=== PATIENT | male | born 1965 | race Caucasian/White ===

== ENCOUNTER 2018-04-23 14:58 | Emergency (ER) | payer OTHER ==
[2018-04-23] MEDS ORDERED: SODIUM CHLORIDE 0.9% 1,000 ML IV STA (15:27)
[2018-04-23 15:28] VITALS: RESP 18
--- NOTE | 2018-04-23 15:42 | ED ---
General Adult HPI - General Source: patient, RN notes reviewed, old records reviewed Mode of arrival: ambulatory Limitations: no limitations - History of Present Illness Severity scale (1-10): 5 <Varun Bradford - Last Filed: 04/23/18 16:13> <Cesar Yeung - Last Filed: 04/23/18 18:27> - General Chief complaint: Headache Stated complaint: Dizzy/Lightheaded Time Seen by Provider: 04/23/18 15:14 - History of Present Illness Initial comments: This is a 52-year-old male the ER for evaluation patient does say for evaluation regarding multiple nonspecific symptoms. Patient has recent diagnosis of elevated blood pressure. Patient has been suffering for one month of dizziness occasional headaches and symptoms of feeling like he struck especially with movement mainly when he started on his car, he denies arm spinning. He is complaining of also sinus pressure-type headaches anterior bilateral eyes, as well as his posterior neck. Denies chest pain denies shortness of breath. Patient states he's had outpatient studies have included a stress test echocardiogram and he has follow-up with ENT this week. Patient denies any other fevers no trauma no other recent change in medications aside from the new blood pressure medication that he is currently taking. Patient states earlier today he is had some pressure in his head as well as some symptoms of dizziness and came to the ER to figure out what is wrong, patient states multiple people told that maybe she has imaging of his brain although his doctors that he seen an outpatient basis and I think that was necessary. Patient currently is asymptomatic (Varun Bradford) - Related Data Home Medications Medication Instructions Recorded Confirmed Atorvastatin [Lipitor] 20 mg PO HS 04/23/18 04/23/18 Ibuprofen [Motrin Ib] 400 mg PO Q6H PRN 04/23/18 04/23/18 Lisinopril [Zestril] 10 mg PO HS 04/23/18 04/23/18 Allergies Allergy/AdvReac Type Severity Reaction Status Date / Time No Known Allergies Allergy Verified 04/23/18 15:28 Review of Systems ROS Other: All systems not noted in ROS Statement are negative. <Varun Bradford - Last Filed: 04/23/18 16:13> ROS Other: All systems not noted in ROS Statement are negative. <Cesar Yeung - Last Filed: 04/23/18 18:27> ROS Statement: Those systems with pertinent positive or pertinent negative responses have been documented in the HPI. Past Medical History Past Medical History: Asthma, Cancer, GI Bleed, Hyperlipidemia, Hypertension Additional Past Medical History / Comment(s): SEASONAL ALLERGIES, SINUS PROBLEMS , DIVERTICULOSIS, HEMORRHOIDS, FX RT ANKLE, NUMBNESS/TINGLING IN BILAT UPPER EXTREMITIES, TESTICULAR CA. History of Any Multi-Drug Resistant Organisms: None Reported Past Surgical History: Tonsillectomy Additional Past Surgical History / Comment(s): COLONOSCOPY, ORCHIECTOMY. Past Anesthesia/Blood Transfusion Reactions: No Reported Reaction Past Psychological History: No Psychological Hx Reported Smoking Status: Current every day smoker Past Alcohol Use History: Occasional Past Drug Use History: None Reported <Varun Bradford - Last Filed: 04/23/18 16:13> General Exam Limitations: no limitations General appearance: alert, in no apparent distress Head exam: Present: atraumatic, normocephalic, normal inspection Eye exam: Present: normal appearance, PERRL, EOMI. Absent: scleral icterus, conjunctival injection, periorbital swelling ENT exam: Present: normal exam, mucous membranes moist Neck exam: Present: normal inspection. Absent: tenderness, meningismus, lymphadenopathy Respiratory exam: Present: normal lung sounds bilaterally. Absent: respiratory distress, wheezes, rales, rhonchi, stridor Cardiovascular Exam: Present: regular rate, normal rhythm, normal heart sounds. Absent: systolic murmur, diastolic murmur, rubs, gallop, clicks GI/Abdominal exam: Present: soft, normal bowel sounds. Absent: distended, tenderness, guarding, rebound, rigid Extremities exam: Present: normal inspection, full ROM, normal capillary refill. Absent: tenderness, pedal edema, joint swelling, calf tenderness Back exam: Present: normal inspection Neurological exam: Present: alert, oriented X3, CN II-XII intact Psychiatric exam: Present: normal affect, normal mood Skin exam: Present: warm, dry, intact, normal color. Absent: rash <Varun Bradford - Last Filed: 04/23/18 16:13> Course <Varun Bradford - Last Filed: 04/23/18 16:13> <Cesar Yeung - Last Filed: 04/23/18 18:27> Vital Signs 04/23/18 04/23/18 04/23/18 15:22 15:25 17:05 Temperature 98.5 F 98 F Pulse Rate 83 62 Pulse Rate [ 82 Sitting] Pulse Rate [ 91 Standing] Respiratory 20 18 18 Rate Blood Pressure 171/82 150/90 Blood Pressure 172/91 [Sitting] Blood Pressure 165/95 [Standing] O2 Sat by Pulse 95 98 Oximetry - Reevaluation(s) Reevaluation #1: 04/23/18 16:13 Patient's medical record is thoroughly reviewed (Varun Bradford) Reevaluation #2: 04/23/18 16:13 Patient concern that from underlying brain disease, requesting CT brain (Varun Bradford) EKG Findings - EKG Comments: EKG Findings:: EKG shows normal sinus rhythm rate of 79, OR 198, QRS 12, QTc 440 <Varun Bradford - Last Filed: 04/23/18 16:13> Medical Decision Making <Varun Bradford - Last Filed: 04/23/18 16:13> - Lab Data Result diagrams: 04/23/18 16:00 04/23/18 16:00 <Cesar Yeung - Last Filed: 04/23/18 18:27> - Medical Decision Making Patient was sent out to me by previous shift physician. Briefly, patient is a 52-year-old male with past medical history of dizziness versus vertigo. He has an worked up extensively by ENT and other specialist. Plan at sign out was to follow-up with CT imaging. CT imaging is negative patient is clear for discharge. Computed tomography scan was read by radiology and reviewed by myself showing no acute processes. Patient reevaluated with stable medical condition. He will be discharge with instructions to follow-up with ENT physician. (Cesar Yeung) - Lab Data Lab Results 04/23/18 04/23/18 04/23/18 Range/Units 16:00 16:00 16:00 WBC 9.2 (3.8-10.6) k/uL RBC 5.06 (4.30-5.90) m/uL Hgb 15.9 (13.0-17.5) gm/dL Hct 46.7 (39.0-53.0) % MCV 92.4 (80.0-100.0) fL MCH 31.5 (25.0-35.0) pg MCHC 34.1 (31.0-37.0) g/dL RDW 13.4 (11.5-15.5) % Plt Count 180 (150-450) k/uL Neutrophils % 66 % Lymphocytes % 23 % Monocytes % 7 % Eosinophils % 2 % Basophils % 1 % Neutrophils # 6.0 (1.3-7.7) k/uL Lymphocytes # 2.1 (1.0-4.8) k/uL Monocytes # 0.7 (0-1.0) k/uL Eosinophils # 0.2 (0-0.7) k/uL Basophils # 0.1 (0-0.2) k/uL PT (9.0-12.0) sec INR (<1.2) APTT (22.0-30.0) sec Sodium 138 (137-145) mmol/L Potassium 4.4 (3.5-5.1) mmol/L Chloride 106 (98-107) mmol/L Carbon Dioxide 25 (22-30) mmol/L Anion Gap 7 mmol/L BUN 13 (9-20) mg/dL Creatinine 0.90 (0.66-1.25) mg/dL Est GFR (CKD-EPI)AfAm >90 (>60 ml/min/1.73 sqM) Est GFR (CKD-EPI)NonAf >90 (>60 ml/min/1.73 sqM) Glucose 92 (74-99) mg/dL Calcium 9.4 (8.4-10.2) mg/dL Phosphorus 3.4 (2.5-4.5) mg/dL Magnesium 1.9 (1.6-2.3) mg/dL Total Bilirubin 0.4 (0.2-1.3) mg/dL AST 34 (17-59) U/L ALT 43 (21-72) U/L Alkaline Phosphatase 71 (38-126) U/L Total Creatine Kinase 286 H (55-170) U/L CK-MB (CK-2) 3.0 H* (0.0-2.4) ng/mL CK-MB (CK-2) Rel Index 1.0 Troponin I <0.012 (0.000-0.034) ng/mL Total Protein 6.7 (6.3-8.2) g/dL Albumin 4.2 (3.5-5.0) g/dL Urine Color Urine Appearance (Clear) Urine pH (5.0-8.0) Ur Specific [place] (1.001-1.035) Urine Protein (Negative) Urine Glucose (UA) (Negative) Urine Ketones (Negative) Urine Blood (Negative) Urine Nitrite (Negative) Urine Bilirubin (Negative) Urine Urobilinogen (<2.0) mg/dL Ur Leukocyte Esterase (Negative) 04/23/18 04/23/18 Range/Units 16:00 16:00 WBC (3.8-10.6) k/uL RBC (4.30-5.90) m/uL Hgb (13.0-17.5) gm/dL Hct (39.0-53.0) % MCV (80.0-100.0) fL MCH (25.0-35.0) pg MCHC (31.0-37.0) g/dL RDW (11.5-15.5) % Plt Count (150-450) k/uL Neutrophils % % Lymphocytes % % Monocytes % % Eosinophils % % Basophils % % Neutrophils # (1.3-7.7) k/uL Lymphocytes # (1.0-4.8) k/uL Monocytes # (0-1.0) k/uL Eosinophils # (0-0.7) k/uL Basophils # (0-0.2) k/uL PT 10.1 (9.0-12.0) sec INR 1.0 (<1.2) APTT 26.1 (22.0-30.0) sec Sodium (137-145) mmol/L Potassium (3.5-5.1) mmol/L Chloride (98-107) mmol/L Carbon Dioxide (22-30) mmol/L Anion Gap mmol/L BUN (9-20) mg/dL Creatinine (0.66-1.25) mg/dL Est GFR (CKD-EPI)AfAm (>60 ml/min/1.73 sqM) Est GFR (CKD-EPI)NonAf (>60 ml/min/1.73 sqM) Glucose (74-99) mg/dL Calcium (8.4-10.2) mg/dL Phosphorus (2.5-4.5) mg/dL Magnesium (1.6-2.3) mg/dL Total Bilirubin (0.2-1.3) mg/dL AST (17-59) U/L ALT (21-72) U/L Alkaline Phosphatase (38-126) U/L Total Creatine Kinase (55-170) U/L CK-MB (CK-2) (0.0-2.4) ng/mL CK-MB (CK-2) Rel Index Troponin I (0.000-0.034) ng/mL Total Protein (6.3-8.2) g/dL Albumin (3.5-5.0) g/dL Urine Color Light Yellow Urine Appearance Clear (Clear) Urine pH 7.0 (5.0-8.0) Ur Specific [place] 1.006 (1.001-1.035) Urine Protein Negative (Negative) Urine Glucose (UA) Negative (Negative) Urine Ketones Negative (Negative) Urine Blood Negative (Negative) Urine Nitrite Negative (Negative) Urine Bilirubin Negative (Negative) Urine Urobilinogen <2.0 (<2.0) mg/dL Ur Leukocyte Esterase Negative (Negative) Disposition <Varun Bradford B - Last Filed: 04/23/18 16:13> Is patient prescribed a controlled substance at d/c from ED?: No Time of Disposition: 18:27 <Cesar Yeung - Last Filed: 04/23/18 18:27> Clinical Impression: Dizziness Disposition: HOME SELF-CARE Condition: Good Instructions: Acute Headache (ED) Referrals: Ti Funes MD [Primary Care Provider] - 1-2 days
[2018-04-23 16:24] LABS: Appearance,Urine Clear (Clear); Bilirubin,Urine Negative (Negative); Blood,Urine Negative (Negative); Color,Urine Light Yellow; Glucose,Urine (UA) Negative (Negative); Ketones,Urine Negative (Negative); Leukocyte Esterase,Urine Negative (Negative); Nitrite,Urine Negative (Negative); Protein,Urine Negative (Negative); Specific Gravity,Urine 1.006 (1.001-1.035); Urobilinogen,Urine <2.0 mg/dL (<2.0)
[2018-04-23 16:26] LABS: Basophils # (A) 0.1 k/uL (0-0.2); Basophils % (A) 1 %; Eosinophils # (A) 0.2 k/uL (0-0.7); Eosinophils % (A) 2 %; HCT 46.7 % (39.0-53.0); HGB 15.9 gm/dL (13.0-17.5); Lymphocytes # (A) 2.1 k/uL (1.0-4.8); Lymphocytes % (A) 23 %; MCH 31.5 pg (25.0-35.0); MCHC 34.1 g/dL (31.0-37.0); MCV 92.4 fL (80.0-100.0); Mean Platelet Volume 7.9; Monocytes # (A) 0.7 k/uL (0-1.0); Monocytes % (A) 7 %; Neutrophils % (A) 66 %; Platelet Count 180 k/uL (150-450); RBC 5.06 m/uL (4.30-5.90); RDW 13.4 % (11.5-15.5); WBC 9.2 k/uL (3.8-10.6)
[2018-04-23 16:35] LABS: Partial Thromboplastin Time 26.1 sec (22.0-30.0); Prothrombin Time 10.1 sec (9.0-12.0)
[2018-04-23 16:43] LABS: ALT 43 U/L (21-72); AST 34 U/L (17-59); Albumin 4.2 g/dL (3.5-5.0); Alkaline Phosphatase 71 U/L (38-126); Anion Gap 7 mmol/L; Blood Urea Nitrogen 13 mg/dL (9-20); Calcium 9.4 mg/dL (8.4-10.2); Carbon Dioxide 25 mmol/L (22-30); Chloride 106 mmol/L (98-107); Glucose 92 mg/dL (74-99); Magnesium 1.9 mg/dL (1.6-2.3); Phosphorus 3.4 mg/dL (2.5-4.5); Potassium 4.4 mmol/L (3.5-5.1); Sodium 138 mmol/L (137-145); Total Bilirubin 0.4 mg/dL (0.2-1.3); Total Protein 6.7 g/dL (6.3-8.2)
[2018-04-23 16:51] LABS: Creatine Kinase 286 U/L (55-170)
--- NOTE | 2018-04-23 17:00 | CT ---
EXAMINATION TYPE: CT brain wo con DATE OF EXAM: 04/23/2018 COMPARISON: None HISTORY: Dizziness and left ear pain. CT DLP: 1035.4 mGycm Automated exposure control for dose reduction was used. FINDINGS: Ventricles and sulci appear normal. There is no mass effect nor midline shift. There is no sign of in tracranial hemorrhage. The calvarium is intact. IMPRESSION: NEGATIVE CT SCAN OF THE BRAIN. NO CHANGE.
--- NOTE | 2018-04-23 17:02 | CT ---
EXAMINATION TYPE: CT sinus wo con DATE OF EXAM: 04/23/2018 COMPARISON: None HISTORY: Dizziness and left ear pain. CT DLP: 581.4 mGycm. Automated Exposure Control for Dose Reduction was Utilized. TECHNIQUE: CT scan of the sinuses is performed without contrast, axial images are obtained, coronal r eformatted images are also reviewed. FINDINGS: There is bilateral patency of the ostiomeatal complex. There are small mucous retention cys ts at the floor of the left maxillary sinus. The other paranasal sinuses appear normally aerated. Orb ital margins are intact. Maxilla is intact and zygomatic arches appear normal. Nasal bone appears int act. Mastoid sinuses appear normal. IMPRESSION: Small mucous retention cysts in the left maxillary sinus. Otherwise negative exam.
[2018-04-23 17:03] LABS: Troponin I <0.012 ng/mL (0.000-0.034)
--- NOTE | 2018-04-23 17:43 | CT ---
EXAMINATION TYPE: CT angio head neck DATE OF EXAM: 04/23/2018 HISTORY: Dizziness and left ear pain. COMPARISON: CT DLP: 410.3 mGycm. Automated Exposure Control for Dose Reduction was Utilized. TECHNIQUE: CTA scan of the neck is performed with IV Contrast, patient injected with 65ml mL of Isov ue 370, axial images are obtained, coronal and sagittal reformatted images are reviewed. Three-D jhonatan nstructed images are created on an independent workstation and reviewed. FINDINGS: There is arterial flow in the vertebral arteries. There is arterial flow in the common internal and e xternal carotid arteries bilaterally. There is normal branching pattern of the great vessels on the a ortic arch. Vertebral arteries are relatively small. There is mild atherosclerotic calcification at t he carotid artery bifurcations without luminal narrowing. There is arterial flow in the anterior middle and posterior cerebral arteries. The anterior cerebral arteries appear to fill mostly from the left side through the anterior communicating artery. There is a diminutive basilar artery. The posterior cerebral arteries are patent. The posterior cerebral robyn crystal appear to fill mostly through the posterior communicating arteries. There is normal contrast opa cification of the venous sinuses. There is no mass effect. There is no evidence of aneurysm or neovas cularity. I see no significant stenosis. IMPRESSION: Diminutive vertebral arteries. Posterior cerebral arteries filled mostly through the post erior communicating arteries. Anterior cerebral arteries fill mostly from the left internal carotid a rtery.
--- NOTE | 2018-04-23 18:00 | XR ---
EXAMINATION TYPE: XR chest 2V DATE OF EXAM: 04/23/2018 COMPARISON: NONE HISTORY: Fatigue TECHNIQUE: Frontal and lateral views of the chest are obtained. FINDINGS: Heart and mediastinum are normal. Lungs are clear. Diaphragm is normal. Bony thorax is int act. Pulmonary vascularity is normal. IMPRESSION: Normal chest.
[2018-04-23 19:16] VITALS: BP 157/97; PULSE 65; TEMP 98.3
== END 2018-04-23 19:05 | disposition home or self-care (01) ==
LOC: EC 14:58
DX: R42 Dizziness and giddiness (principal); R51 Headache; H57.13 Ocular pain, bilateral; M54.2 Cervicalgia; E78.5 Hyperlipidemia, unspecified; I10 Essential (primary) hypertension; F17.200 Nicotine dependence, unspecified, uncomplicated; Z79.899 Other long term (current) drug therapy; Z85.47 Personal history of malignant neoplasm of testis; Z90.79 Acquired absence of other genital organ(s)
CPT/HCPCS: 36415; 93005; 80053; 82550; 82553; 83735; 84100; 84484; 85025; 85610; 85730; 81003; 87086; 71046; 70496; 70450; 70498; 70486; 99285; 96360; Q9967

== ENCOUNTER → 2018-05-22 | Outpatient (CLI) | payer OTHER ==
--- NOTE | 2018-05-22 08:18 | MR ---
EXAMINATION TYPE: MR iac wo/w con DATE OF EXAM: 05/22/2018 COMPARISON: None. HISTORY: Headache, Vertigo TECHNIQUE: Multiplanar, multisequence images of the brain and brainstem is performed without and with IV contras t, utilizing 12.5 mL intravenous Gadavist . FINDINGS: There is a partially empty sella. Midline structures are otherwise unremarkable. There is a normal craniocervical junction. There is a tiny, 3.6 mm area of restricted diffusion in the left cer ebellar hemisphere. This correlates with a tiny cystic lesion. There is no other restricted diffusion . There are normal vascular flow voids. The orbits are normal. High-resolution imaging through the posterior fossa fails to demonstrate a CP angle mass lesion. No i ntracanalicular lesion is seen. There are scattered subcentimeter FLAIR lesions on the FLAIR dataset. These are nonspecific. A differ ential diagnosis would include demyelination, small vessel disease, hypertension, migraine headaches and Lyme's disease. There is no mass effect, midline shift or intracranial blood identified. Following intravenous administration of contrast. I do not see evidence of abnormal enhancement. Spec ifically, there is no evidence of intracanalicular enhancement. IMPRESSION: 1. TINY AREA OF RESTRICTED DIFFUSION IN THE LEFT CEREBELLAR HEMISPHERE MAY RELATE TO A SUBACUTE INFAR CT. 2. PARTIALLY EMPTY SELLA. 3. SCATTERED FLAIR LESIONS IN THE FLAIR DATASET. THESE ARE NONSPECIFIC. 4. NO EVIDENCE OF A CP ANGLE MASS LESION OR INTRACANALICULAR ACOUSTIC SCHW[place].
== END | disposition home or self-care (01) ==
LOC: RADMRIMAIN 07:06
PROVIDERS: ATTEND Otolaryngology
DX: G93.89 Other specified disorders of brain (principal); E23.6 Other disorders of pituitary gland; R93.0 Abnormal findings on diagnostic imaging of skull and head, not elsewhere classified; R51 Headache
CPT/HCPCS: 70553; A9581

== ENCOUNTER → 2018-05-27 | Outpatient (CLI) | payer OTHER ==
--- NOTE | 2018-05-27 08:45 | MR ---
EXAMINATION TYPE: MR brain wo/w con DATE OF EXAM: 05/27/2018 COMPARISON: CT brain from April 23, 2018. MRI IAC May 22, 2018 HISTORY: Transient cerebral ischemic attack per order. Recent abnormal MRI. TECHNIQUE: Multiplanar, multisequence images of the brain and brainstem is performed without and with IV contras t, utilizing 12.5 mL intravenous Gadavist . FINDINGS: Diffusion weighted images demonstrate no evidence of a new infarct or other diffusion abnor mality. Stable 3 mm focus posterior inferior left cerebellar hemisphere image 48 series 305 is felt to correspond to area of volume averaging at surface of the brain correlating with axial image 7 on T 2 and FLAIR weighted images. There is no extra-axial fluid collection or significant white matter sig nal abnormality. The ventricular system and cisternal spaces are normal in size and appearance. The brain volume is age appropriate. Midline structures demonstrate normal morphology. Empty sella appearance is redemonstrated. The crani ocervical junction appears within normal limits. Post contrast images demonstrate no abnormal enhanc ement. The dural venous sinuses appear patent. The visualized sinuses are clear and the globes are in tact. No suspicious fluid signal seen in mastoid air cells bilaterally. IMPRESSION: No convincing evidence of a recent infarct.
== END ==
LOC: RADMRIMAIN 07:35
PROVIDERS: ATTEND Psychiatry & Neurology Neurology
DX: G45.9 Transient cerebral ischemic attack, unspecified (principal)
CPT/HCPCS: 70553; A9581

== ENCOUNTER → 2020-03-19 | Outpatient (CLI) | payer OTHER ==
--- NOTE | 2020-03-19 11:20 | US ---
EXAMINATION TYPE: US venous doppler duplex LE RT DATE OF EXAM: 03/19/2020 11:10 AM COMPARISON: NONE CLINICAL HISTORY: M25.561 Pain in Rt knee. SIDE PERFORMED: Right TECHNIQUE: The lower extremity deep venous system is examined utilizing real time linear array sonog dima with graded compression, doppler sonography and color-flow sonography. VESSELS IMAGED: External Iliac Vein (EIV) Common Femoral Vein Deep Femoral Vein Greater Saphenous Vein * Femoral Vein Popliteal Vein Small Saphenous Vein * Proximal Calf Veins (* superficial vessels) Right Leg: Negative for DVT IMPRESSION: No evidence for DVT.
== END | disposition home or self-care (01) ==
LOC: RADUSWWP 10:51
PROVIDERS: ATTEND Orthopaedic Surgery
DX: M17.11 Unilateral primary osteoarthritis, right knee (principal)

== ENCOUNTER → 2020-05-25 | Outpatient (CLI) | payer OTHER ==
--- NOTE | 2020-05-25 14:01 | US ---
EXAMINATION TYPE: US abdomen limited DATE OF EXAM: 05/25/2020 COMPARISON: NONE CLINICAL HISTORY: K76.89 DISEASE OF LIVER. soreness RUQ EXAM MEASUREMENTS: Liver Length: 19.1 cm Gallbladder Wall: 0.3 cm CBD: 0.4 cm Right Kidney: 11.1 x 6.4 x 5.4 cm Pancreas: wnl Liver: Multiple subcentimeter cysts throughout liver. Largest cyst = 2.5 x 1.9 x 1.3 cm Gallbladder: wnl Evidence for sonographic Mckenzie's sign: No CBD: wnl Right Kidney: No hydronephrosis or masses seen IMPRESSION: 1. Multiple hepatic cysts
== END | disposition home or self-care (01) ==
LOC: RADUSWWP 07:04
PROVIDERS: ATTEND Internal Medicine Gastroenterology
DX: K76.89 Other specified diseases of liver (principal)
CPT/HCPCS: 76705

== ENCOUNTER 2020-06-19 08:56 | Day surgery (SDC) | payer OTHER ==
[2020-06-15 17:35] VITALS: BMI 36.2
[~2020-06-19 08:56] MED LIST: LACTATED RINGERS 1,000 ML IV SCH; LIDOCAINE 1% (10MG/ML) FOR IV START INTRADERMA PRN; MIDAZOLAM 2 MG/2 ML VIAL IV PRN
[2020-06-19 09:26] VITALS: TEMP 97.3
[2020-06-19] MEDS ORDERED: PROPOFOL 10 MG/ML 20 ML VIAL IV ONE (10:15)
[2020-06-19 10:35] LABS: Bilirubin, Delta 0.2 mg/dL (0.0-0.2); Bilirubin,Unconjugated 0.7 mg/dL (0.0-1.1); Total Bilirubin 0.9 mg/dL (0.2-1.3); Total Protein 6.5 g/dL (6.3-8.2)
[2020-06-19] MEDS ORDERED: IV FLUID CONTINUATION 1,000 ML IV ONE (10:57)
[2020-06-19 10:59] VITALS: RESP 16
--- NOTE | 2020-06-19 11:00 | P.PCN ---
Date of Procedure: 06/19/20 Description of Procedure: BRIEF HISTORY: Patient is a 54-year-old male presenting for colonoscopy for evaluation of adenomatous polyp of the colon. Prior colonoscopy in 2013 with polypectomy. Does report some loose stool and abdominal bloating. PROCEDURE PERFORMED: Colonoscopy with polypectomy and biopsy. PREOPERATIVE DIAGNOSIS: adenomatous polyp of the colon, last colonoscopy 2013, altered bowel function. ESTIMATED BLOOD LOSS: Minimal. IV sedation per Anesthesia. PROCEDURE: After informed consent was obtained, the patient, was brought into the endoscopy unit. IV sedation was administered by Anesthesia under continuous monitoring. Digital rectal examination was normal. Initially the Olympus CF-190 flexible video colonoscope was then inserted in the rectum, gradually advanced into the cecum without any difficulty. Careful examination was performed as the scope was gradually being withdrawn. Ileocecal valve and the appendiceal orifice were visualized and appeared normal. Prep was excellent. Mucosa of the cecum, ascending colon, transverse colon, descending colon, sigmoid colon, and rectum appeared normal. a flat 12 mm transverse colon polyp was removed with hot snare polypectomy. A diminutive 2 mm sigmoid colon polyp was removed with cold forcep polypectomy. Random biopsies were taken of a normal-appearing right and left colon as well as some erythematous mucosa in the sigmoid colon 40 cm from theanal verge which was likely prep related. A few scattered sigmoid diverticula noted. Retroflexion was performed in the rectum and no lesions were seen. The patient tolerated the procedure well. IMPRESSION: Flat transverse colon polyp removed with hot snare polypectomy. Diminutive sigmoid colon polyp removed with cold forceps polypectomy. Random biopsies taken of the right and left colon the setting of altered bowel function to rule out microscopic colitis. Mild sigmoid diverticulosis. RECOMMENDATIONS: Findings of this examination were discussed with the patient. Okay to resume diet. Okay to resume medications. Follow-up in GI clinic on June 26 for results of biopsies and polypectomy as scheduled. Anticipate repeat colonoscopy in 3 years for high-risk colon polyp.
[2020-06-19 11:16] VITALS: BP 125/69; PULSE 60
== END 2020-06-19 11:32 | disposition home or self-care (01) ==
LOC: ORWHC2ENDO 08:56
PROVIDERS: ATTEND Internal Medicine
DX: D12.3 Benign neoplasm of transverse colon (principal); D12.5 Benign neoplasm of sigmoid colon; K63.5 Polyp of colon; Z87.19 Personal history of other diseases of the digestive system; K57.30 Diverticulosis of large intestine without perforation or abscess without bleeding; Z86.010 Personal history of colon polyps; Z98.890 Other specified postprocedural states; E78.5 Hyperlipidemia, unspecified; F17.200 Nicotine dependence, unspecified, uncomplicated; Z79.899 Other long term (current) drug therapy
CPT/HCPCS: 88305; 80076; 82105; 45380; 45385; J2704

== ENCOUNTER 2025-03-02 13:38 | Emergency (ER) | payer OTHER ==
--- NOTE | 2025-03-02 15:36 | ED ---
General Adult HPI - General Source: patient, RN notes reviewed Mode of arrival: ambulatory Limitations: no limitations <Everton Gaytan - Last Filed: 03/02/25 15:35> <Marjorie Dale - Last Filed: 03/02/25 23:16> - General Chief complaint: Chest Pain Stated complaint: elevated BP Time Seen by Provider: 03/02/25 15:35 - History of Present Illness Initial comments: Quick note 59-year-old male presents emergency department from PCP EP's office for cardiac evaluation. Patient states he is just not felt well he states he is very fatigued, nauseated complaining of chest tightness worse with exertion complains of abdominal discomfort right leg pain. Patient states his blood pressure has been out of control he is on current medication. Denies any current or recent cardiac workup. Denies any syncopal episodes. (Everton Gaytan) 59-year-old male sent in by his PCP. Patient reports that he had a routine doctor's visit earlier today. During the visit he was hypertensive. He also reports that for the last week to 2 weeks he has been increasingly fatigued, nauseated, bloated and having abdominal pain. He is a pack per day smoker. He states that his chest does get heavier as his blood pressure goes up. States that he is on antihypertensives and takes them as prescribed. He also states that he has been getting some prickling discomfort in his right foot when he walks or bears weight. States that he does have shortness of breath throughout the day which he states has been ongoing for "a while". No fever. He admits to loose stool. (Marjorie Dale) - Related Data Home Medications Medication Instructions Recorded Confirmed Atorvastatin [Lipitor] 20 mg PO HS 04/23/18 03/02/25 lisinopriL [Zestril] 20 mg PO HS 03/02/25 03/02/25 Allergies Allergy/AdvReac Type Severity Reaction Status Date / Time No Known Allergies Allergy Verified 03/02/25 20:28 Review of Systems ROS Other: All systems not noted in ROS Statement are negative. <Everton Gaytan - Last Filed: 03/02/25 15:35> ROS Other: All systems not noted in ROS Statement are negative. <Marjorie Dale - Last Filed: 03/02/25 23:16> ROS Statement: Those systems with pertinent positive or pertinent negative responses have been documented in the HPI. Past Medical History Past Medical History: Asthma, Cancer, GERD/Reflux, Hyperlipidemia, Hypertension Additional Past Medical History / Comment(s): SEASONAL ALLERGIES, SINUS PROBLEMS, DIVERTICULOSIS, HEMORRHOIDS, FX RT ANKLE, NUMBNESS/TINGLING IN BILATERAL UPPER EXTREMITIES, HX TESTICULAR CA. History of Any Multi-Drug Resistant Organisms: None Reported Past Surgical History: Tonsillectomy Additional Past Surgical History / Comment(s): COLONOSCOPY, LEFT Testicle removed). Past Anesthesia/Blood Transfusion Reactions: No Reported Reaction Past Psychological History: No Psychological Hx Reported Smoking Status: Current every day smoker - Past Family History Father Family Medical History: No Reported History <Everton Gaytan - Last Filed: 03/02/25 15:35> General Exam Limitations: no limitations <Everton Gaytan - Last Filed: 03/02/25 15:35> Limitations: no limitations General appearance: alert, in no apparent distress Head exam: Present: atraumatic, normocephalic, normal inspection Eye exam: Present: normal appearance, EOMI Neck exam: Present: normal inspection. Absent: meningismus Respiratory exam: Present: normal lung sounds bilaterally. Absent: respiratory distress, wheezes, rales, rhonchi, stridor Cardiovascular Exam: Present: regular rate, normal rhythm, normal heart sounds. Absent: systolic murmur, diastolic murmur, rubs, gallop, clicks GI/Abdominal exam: Present: soft, distended, tenderness. Absent: guarding, rebound, rigid Neurological exam: Present: alert, oriented X3 Psychiatric exam: Present: normal affect, normal mood Skin exam: Present: warm, dry, normal color <Marjorie Dale - Last Filed: 03/02/25 23:16> - General Exam Comments Initial Comments: Visual Physical Exam Vital signs reviewed General: Well-appearing, nontoxic, no acute distress. Head: Normocephalic, atraumatic Eyes: PERRLA, EOMI ENT: Airway patent Chest: Nonlabored breathing Skin: No visual rash, normal skin tone Neuro: Alert and oriented 3 Musculoskeletal: No gross abnormalities (Everton Gaytan) Course Vital Signs 03/02/25 03/02/25 03/02/25 13:52 21:27 22:59 Temperature 98.3 F 98.5 F Pulse Rate 71 61 57 L Respiratory 16 18 18 Rate Blood Pressure 178/109 153/74 167/94 O2 Sat by Pulse 98 94 L 98 Oximetry Medical Decision Making <Everton Gaytan - Last Filed: 03/02/25 15:35> - Lab Data Result diagrams: 03/02/25 14:13 03/02/25 14:13 <Marjorie Dale - Last Filed: 03/02/25 23:16> - Medical Decision Making I completed the quick note portion of this chart signed Everton Gaytan PA-C (Everton Gaytan) - Lab Data Lab Results 03/02/25 03/02/25 03/02/25 Range/Units 14:13 14:13 14:13 WBC 7.03 (4.50-10.00) 10*3/uL RBC 4.62 (4.40-5.60) 10*6/uL Hgb 15.7 (13.0-17.0) g/dL Hct 43.4 (39.6-50.0) % MCV 93.9 (80.0-97.0) fL MCH 34.0 H (27.0-32.0) pg MCHC 36.2 (32.0-37.0) g/dL Plt Count 186 (140-440) 10*3/uL MPV 11.3 (9.5-12.2) fL Immature Gran % (Auto) 0.3 % Neutrophils % 60.8 % Lymphocytes % 25.0 % Monocytes % 11.2 % Eosinophils % 2.0 % Basophils % 0.7 % Immature Gran # 0.02 (0.00-0.04) 10*3/uL Neutrophils # 4.27 (1.80-7.70) 10*3/uL Lymphocytes # 1.76 (0.90-5.00) 10*3/uL Monocytes # 0.79 (0.20-1.00) 10*3/uL Eosinophils # 0.14 (0.04-0.35) 10*3/uL Basophils # 0.05 (0.00-0.10) 10*3/uL PT 10.6 (10.0-12.5) sec INR 0.9 (<1.2) APTT 26.9 (22.0-30.0) sec D-Dimer 0.23 (<0.60) mg/L FEU Sodium 136 L (137-145) mmol/L Potassium 4.2 (3.5-5.1) mmol/L Chloride 101 (98-107) mmol/L Carbon Dioxide 27 (22-30) mmol/L Anion Gap 8 mmol/L BUN 16 (9-20) mg/dL Creatinine 0.74 (0.66-1.25) mg/dL Est GFR (CKD-EPI)AfAm >90 (>60 ml/min/1.73 sqM) Est GFR (CKD-EPI)NonAf >90 (>60 ml/min/1.73 sqM) Glucose 102 H (74-99) mg/dL Calcium 9.4 (8.4-10.2) mg/dL Magnesium 1.8 (1.6-2.3) mg/dL Total Bilirubin 0.6 (0.2-1.3) mg/dL AST 24 (17-59) U/L ALT 19 (4-49) U/L Alkaline Phosphatase 86 (38-126) U/L Troponin I (0.000-0.034) ng/mL Total Protein 6.3 (6.3-8.2) g/dL Albumin 4.0 (3.5-5.0) g/dL 03/02/25 03/02/25 Range/Units 14:13 19:07 WBC (4.50-10.00) 10*3/uL RBC (4.40-5.60) 10*6/uL Hgb (13.0-17.0) g/dL Hct (39.6-50.0) % MCV (80.0-97.0) fL MCH (27.0-32.0) pg MCHC (32.0-37.0) g/dL Plt Count (140-440) 10*3/uL MPV (9.5-12.2) fL Immature Gran % (Auto) % Neutrophils % % Lymphocytes % % Monocytes % % Eosinophils % % Basophils % % Immature Gran # (0.00-0.04) 10*3/uL Neutrophils # (1.80-7.70) 10*3/uL Lymphocytes # (0.90-5.00) 10*3/uL Monocytes # (0.20-1.00) 10*3/uL Eosinophils # (0.04-0.35) 10*3/uL Basophils # (0.00-0.10) 10*3/uL PT (10.0-12.5) sec INR (<1.2) APTT (22.0-30.0) sec D-Dimer (<0.60) mg/L FEU Sodium (137-145) mmol/L Potassium (3.5-5.1) mmol/L Chloride (98-107) mmol/L Carbon Dioxide (22-30) mmol/L Anion Gap mmol/L BUN (9-20) mg/dL Creatinine (0.66-1.25) mg/dL Est GFR (CKD-EPI)AfAm (>60 ml/min/1.73 sqM) Est GFR (CKD-EPI)NonAf (>60 ml/min/1.73 sqM) Glucose (74-99) mg/dL Calcium (8.4-10.2) mg/dL Magnesium (1.6-2.3) mg/dL Total Bilirubin (0.2-1.3) mg/dL AST (17-59) U/L ALT (4-49) U/L Alkaline Phosphatase (38-126) U/L Troponin I <0.012 <0.012 (0.000-0.034) ng/mL Total Protein (6.3-8.2) g/dL Albumin (3.5-5.0) g/dL Disposition <Everton Gaytan - Last Filed: 03/02/25 15:35> Is patient prescribed a controlled substance at d/c from ED?: No Time of Disposition: 23:16 <Marjorie Dale - Last Filed: 03/02/25 23:16> Clinical Impression: Fatigue, Hypertension Disposition: HOME SELF-CARE Condition: Good Instructions (If sedation given, give patient instructions): Fatigue (ED), Chronic Hypertension (ED) Additional Instructions: Follow-up with your PCP. Report back to ER with any new or worsening symptoms. Take your blood pressure at the same time daily, for example take this at breakfast and dinnertime daily. Record the readings to help trend any changes in your blood pressure. Referrals: Ti Funes MD [Primary Care Provider] - 1-2 days
[2025-03-02 15:56] LABS: Basophils # (A) 0.05 10*3/uL (0.00-0.10); Basophils % (A) 0.7 %; Eosinophils # (A) 0.14 10*3/uL (0.04-0.35); HCT 43.4 % (39.6-50.0); HGB 15.7 g/dL (13.0-17.0); Lymphocytes # (A) 1.76 10*3/uL (0.90-5.00); MCHC 36.2 g/dL (32.0-37.0); MCV 93.9 fL (80.0-97.0); Mean Platelet Volume 11.3 fL (9.5-12.2); Monocytes # (A) 0.79 10*3/uL (0.20-1.00); Monocytes % (A) 11.2 %; Neutrophils # (A) 4.27 10*3/uL (1.80-7.70); Neutrophils % (A) 60.8 %; Platelet Count 186 10*3/uL (140-440); RBC 4.62 10*6/uL (4.40-5.60); WBC 7.03 10*3/uL (4.50-10.00)
[2025-03-02 16:05] LABS: ALT 19 U/L (4-49); AST 24 U/L (17-59); African American GFR (CKD) >90 (>60 ml/min/1.73 sqM); Alkaline Phosphatase 86 U/L (38-126); Anion Gap 8 mmol/L; Blood Urea Nitrogen 16 mg/dL (9-20); Calcium 9.4 mg/dL (8.4-10.2); Carbon Dioxide 27 mmol/L (22-30); Chloride 101 mmol/L (98-107); Glucose 102 mg/dL (74-99); Magnesium 1.8 mg/dL (1.6-2.3); Non-African American GFR(CKD) >90 (>60 ml/min/1.73 sqM); Potassium 4.2 mmol/L (3.5-5.1); Sodium 136 mmol/L (137-145); Total Bilirubin 0.6 mg/dL (0.2-1.3); Total Protein 6.3 g/dL (6.3-8.2)
[2025-03-02 16:16] LABS: INR 0.9 (<1.2); Partial Thromboplastin Time 26.9 sec (22.0-30.0); Prothrombin Time 10.6 sec (10.0-12.5)
--- NOTE | 2025-03-02 16:41 | XR ---
EXAMINATION TYPE: XR chest 2V DATE OF EXAM: 03/02/2025 4:37 PM COMPARISON: Chest radiographs from 04/23/2018 TECHNIQUE: XR chest 2V Frontal and lateral views of the chest. CLINICAL INDICATION:Male, 59 years old with history of Chest Pain; FINDINGS: Lungs/Pleura: There is no evidence of pleural effusion, focal consolidation, or pneumothorax. Pulmonary vascularity: Unremarkable. Heart/mediastinum: Cardiomediastinal silhouette is unremarkable. Musculoskeletal: No acute osseous pathology. IMPRESSION: No acute cardiopulmonary disease/process. [facility], , 03/02/2025 4:39 PM
[2025-03-02 21:30] VITALS: RESP 18
--- NOTE | 2025-03-02 22:28 | CT ---
INDICATION: Patient age:Male; 59 years old; Reason for study: pain; PHH. COMPARISON: Abdominal ultrasound 2019. TECHNIQUE: Standard CT of the abdomen and pelvis following the administration of 100 cc of Isovue 3 00 IV contrast material. Coronal and sagittal reformats were performed. One or more CT dose reduction strategies were utilized during this examination. Total DLP administered was 1864.9 mGycm. FINDINGS: LOWER CHEST: Bibasilar atelectasis. ABDOMEN LIVER: Multiple subcentimeter hypoattenuating structures are demonstrated throughout the liver, which are too small to accurately characterize some of which were seen on the 2019 ultrasound in reference . There is a dominant cystic focus near the liver dome measuring up to 2.4 cm demonstrating simple fl uid attenuation. The liver morphology is within normal limits. GALLBLADDER AND BILE DUCTS: Unremarkable. PANCREAS: Atrophy of the distal body and tail. SPLEEN: Unremarkable. ADRENAL GLANDS: Unremarkable. KIDNEYS AND URETERS: No evidence of hydronephrosis or renal calculus. The ureters are unremarkable. Bilateral collecting systems are opacified on delayed phased images. PELVIS URINARY BLADDER: Incompletely distended but grossly unremarkable. REPRODUCTIVE: Prostate is not enlarged. Small right hydrocele. ABDOMEN & PELVIS STOMACH AND BOWEL: Small hiatal hernia. The stomach is otherwise unremarkable. The small bowel is of normal caliber. Multiple scattered diverticula are seen involving the sigmoid and descending colon. N o significant associated fat stranding. No evidence of bowel obstruction. PERITONEUM: No evidence of pneumoperitoneum or free fluid. VASCULATURE: No aortic aneurysmal changes. MUSCULOSKELETAL: Degenerative changes of the visualized spine and bony pelvis with no acute osteomyel itis. LYMPH NODES: Unremarkable. SOFT TISSUE/ABDOMINAL WALL: Small fat filled right inguinal hernia IMPRESSION: 1. No acute intra-abdominal/pelvic process. 2. Simple hepatic cyst with multiple subcentimeter hypodense foci too small to characterize on this s tudy however some of these were seen on the 2019 study in reference. 3. Colonic diverticulosis. [facility], , 03/02/2025 10:25 PM
[2025-03-02 23:11] VITALS: BP 167/94; PULSE 57; TEMP 98.5
== END 2025-03-02 23:24 | disposition home or self-care (01) ==
LOC: EC 13:38
DX: I10 Essential (primary) hypertension (principal); R53.83 Other fatigue; F17.210 Nicotine dependence, cigarettes, uncomplicated
CPT/HCPCS: 36415; 93005; 85379; 80053; 83735; 84484; 85025; 85610; 85730; 71046; 74177; 99285; Q9967